=== PATIENT | male | born 1940 | race Caucasian/White ===

== ENCOUNTER 2022-06-08 10:46 | Emergency (ER) | payer OTHER ==
[2022-06-08 10:51] VITALS: RESP 18; BMI 32.5
[2022-06-08 12:08] LABS: INR 1.46 (0.83-1.09); PROTHROMBIN TIME (PATIENT) 16.9 SEC (9.7-13.0)
[2022-06-08 12:11] LABS: ACTIVATED PTT 35.1 SECONDS (25.2-36.5)
[2022-06-08 12:16] LABS: BASO % 0.8 % (0-2.0); EOS % 1.2 % (0-4.5); HEMATOCRIT 44.3 % (35.4-49); LYMPH % 21.7 % (8-40); MCH 32.3 pg (25.7-33.7); MCHC 33.9 g/dl (32.0-35.9); MEAN CELL VOLUME 95.4 fl (80-96); MEAN PLT VOLUME 9.5 fl (7.5-11.1); MONO % 11.8 % (3.8-10.2); NEUT % 64.5 % (42.8-82.8); PLATELET COUNT 244 10^3/uL (134-434); RBC 4.64 M/mm3 (4.00-5.60); WHITE BLOOD COUNT 8.8 K/mm3 (4.0-10.0)
[2022-06-08 12:18] LABS: POTASSIUM 4.1 mmol/L (3.5-5.1)
[2022-06-08 12:22] LABS: ALBUMIN 2.9 g/dl (3.4-5.0); BLOOD UREA NITROGEN 18.8 mg/dL (7-18)
[2022-06-08 12:29] LABS: N-TERMINAL BNP 1942.5 pg/ml (5-450)
[2022-06-08 12:31] LABS: TOT PROT 6.7 g/dl (6.4-8.2)
[2022-06-08] MEDS ORDERED: FUROSEMIDE 40 MG/4 ML INJECTABLE VIAL IVPUSH ONE (13:26)
[2022-06-08] MEDS ORDERED: VANCOMYCIN 1 GM in D5W (PRE-DOCKED) 1,000 MG/250 ML (RESTRICTED TO ID ONLY IVPB ONE (13:31)
[2022-06-08] MEDS ORDERED: FUROSEMIDE 40 MG/4 ML INJECTABLE VIAL ONE (14:19)
[2022-06-08] MEDS ORDERED: VANCOMYCIN/WATER FOR INJ (PEG) 1,000 MG/200 ML BAG IVPB ONE (14:19)
[2022-06-08] MEDS ORDERED: CLINDAMYCIN HCL 150 MG CAPSULE (FP) PO ONE (15:13)
[2022-06-08] MEDS ORDERED: CLINDAMYCIN HCL 150 MG CAPSULE (FP) ONE (15:29)
[2022-06-08 16:10] VITALS: BP 137/78; PULSE 78; TEMP 98.4
== END 2022-06-08 16:10 | disposition home or self-care (01) ==
LOC: JER 10:46
PROC: 3E033GC Introduction of Other Therapeutic Substance into Peripheral Vein, Percutaneous Approach (ICD-10-PCS; principal; 2022-06-08)
DX: L03.115 Cellulitis of right lower limb (principal)
CPT/HCPCS: 36415; 71045-TC-FY; 73590-TC-RT-FY; 73610-TC-RT-FY; 73630-TC-RT-FY; 80053; 83880; 85025; 85610; 85730; 87040; 93005; 93010; 93971-TC; 99285-25